=== PATIENT | male | born 1955 | race Caucasian/White ===

== ENCOUNTER 2018-11-05 11:18 | Emergency (ER) | payer MEDICARE ==
[~2018-11-05] VITALS: Ht 188 cm; Wt 122.5 kg
--- NOTE | 2018-11-05 12:02 | NUR ---
PT BIB P/V SENT FROM [facility] FOR FAST HEART RATE FOR 3 WEKKS PER PT. PT DENIES CP OR SOB.
[2018-11-05] MEDS ORDERED: ADENOSINE 6 MG/2 ML ONE ×2 (12:06→12:07)
[2018-11-05 12:17] LABS: BASOPHILS # (AUTO) 0.02 x10^3/uL (0-0.1); BASOPHILS % (AUTO) 0 % (0-1); EOSINOPHILS % (AUTO) 4 % (1-7); LYMPHOCYTES # (AUTO) 1.86 x10^3/uL (1-3.4); LYMPHOCYTES % (AUTO) 25 % (22-44); MD NO; MEAN CORPUSCULAR HEMOGLOBIN 32.8 pg (27.5-34.5); MEAN CORPUSCULAR HGB CONC 33.7 g/dL (33.2-36.2); MEAN CORPUSCULAR VOLUME 97.3 fL (81-97); MEAN PLATELET VOLUME 8.4 fL (7.4-10.4); MONOCYTES # (AUTO) 0.53 x10^3/uL (0.2-0.8); MONOCYTES % (AUTO) 7 % (2-9); NEUTROPHILS # (AUTO) 4.67 x10^3/uL (1.8-6.8); NEUTROPHILS % (AUTO) 63 % (42-75); PLATELET COUNT 216 x10^3/uL (130-400); RED BLOOD COUNT 5.08 x10^6/uL (4.38-5.82); RED CELL DISTRIBUTION WIDTH 13.8 % (9.4-14.8)
[2018-11-05 12:27] LABS: INTERNATIONAL NORMALIZED RATIO 1.05 (0.93-1.1); PROTHROMBIN TIME 11.1 Seconds (9.6-11.5)
[2018-11-05] MEDS ORDERED: ADENOSINE 6 MG/2 ML IVPush ONE ×2 (12:30)
[2018-11-05 12:34] LABS: ANION GAP 6 mmol/L (5-15); CALCIUM 9.5 mg/dL (8.5-10.1); CHLORIDE 107 mmol/L (98-107); CREATININE 1.14 mg/dL (0.7-1.3)
--- NOTE | 2018-11-05 12:37 | NUR ---
ADENOSINE ATTEMPTED X2 WITH NO SUCCESS. HR BRIEFLY WENT UP TO 170-180 FOR APPROX 15 SECONDS IMMEDIATELY AFTER ADMINISTRATION, THEN RETURNING TO 130-140. MD PRESENT TO REVIEW RHYTHM STRIP. AWAITING CARDS CONSULT.
[2018-11-05] MEDS ORDERED: SODIUM CHLORIDE 0.9% 1,000ML IVBOLUS ONE (13:00)
[2018-11-05 13:34] VITALS: BP 129/94
[2018-11-05] MEDS ORDERED: ASPI-650 PO (13:37)
[2018-11-05] MEDS ORDERED: MULT-6 PO (13:37)
[2018-11-05] MEDS ORDERED: ATOR40TA78 PO (13:37)
[2018-11-05] MEDS ORDERED: OMEG1CAP23 PO (13:37)
[2018-11-05] MEDS ORDERED: METO25TA35 PO (13:37)
[2018-11-05] MEDS ORDERED: VITAMIN D PO (13:37)
[2018-11-05] MEDS ORDERED: OMNIPAQUE 350 MG/ML, 100ML BOTTLE ONE (14:54)
== END 2018-11-05 16:09 | disposition left against medical advice (07) ==
LOC: ED 12:32
DX: I49.9 Cardiac arrhythmia, unspecified (principal)
CPT/HCPCS: 36415; 71045; 71275; 80048; 82040; 82330; 83735; 84443; 85025; 85610; 85730; 93005; 96360; 99291; J0153; J7030; Q9967

== ENCOUNTER → 2018-11-10 | Outpatient (CLI) | payer MEDICARE ==
[~2018-11-10] MED LIST: ASPI-650 PO; ATOR40TA78 PO; METO25TA35 PO; MULT-6 PO; OMEG1CAP23 PO; VITAMIN D PO
== END | disposition home or self-care (01) ==
LOC: CVU 12:20
PROVIDERS: ATTEND Nurse Practitioner Primary Care
DX: I08.2 Rheumatic disorders of both aortic and tricuspid valves (principal); E78.5 Hyperlipidemia, unspecified
CPT/HCPCS: 93306

== ENCOUNTER 2019-03-07 05:52 | Day surgery (SDC) | payer MEDICARE ==
[~2019-03-07] VITALS: Ht 188 cm; Wt 118.2 kg
[2019-03-07] MEDS ORDERED: SODIUM CHLORIDE 0.9% 1,000 ML IV SCH ×2 (06:11→06:30)
[2019-03-07] MEDS ORDERED: DILT180C2 PO (06:18)
[2019-03-07 06:20] VITALS: BP 115/84
[2019-03-07 07:10] LABS: ALBUMIN 3.9 g/dL (3.4-5.0); ANION GAP 8 mmol/L (5-15); CALCIUM 8.7 mg/dL (8.5-10.1); CHLORIDE 109 mmol/L (98-107)
[2019-03-07 07:13] LABS: ALANINE AMINOTRANSFERASE 37 U/L (12-78); ALKALINE PHOSPHATASE 65 U/L (45-117); BILIRUBIN,TOTAL 1.1 mg/dL (0.2-1.0); CREATININE 1.08 mg/dL (0.7-1.3); TOTAL PROTEIN 7.5 g/dL (6.4-8.2)
[2019-03-07] MEDS ORDERED: MIDAZOLAM 1 MG/ML, 2ML ONE (07:41)
[2019-03-07] MEDS ORDERED: FENTANYL PF 250 MCG/5ML ONE (07:41)
[2019-03-07] MEDS ORDERED: SUCCINYLCHOLINE 20 MG/ML, 10ML ONE (08:05)
[2019-03-07] MEDS ORDERED: DEXAMETHASONE 4 MG/ML, 1ML ONE (08:05)
[2019-03-07] MEDS ORDERED: PROPOFOL 10 MG/ML, 20ML ONE (08:05)
[2019-03-07] MEDS ORDERED: ROCURONIUM 10MG/ML,5ML ONE (08:05)
[2019-03-07] MEDS ORDERED: ONDANSETRON 2MG/ML, 2ML ONE (08:05)
[2019-03-07] MEDS ORDERED: LIDOCAINE 1%, 20ML ONE (08:14)
[2019-03-07] MEDS ORDERED: ACETAMINOPHEN 325 MG TABLET PO PRN (09:30)
[2019-03-07] MEDS ORDERED: DIAZEPAM 5 MG/ML, 2ML IVPush PRN (10:00)
[2019-03-07] MEDS ORDERED: FENTANYL PF 100 MCG/2ML IV PRN (10:00)
[2019-03-07] MEDS ORDERED: OXYcodone 5 MG/5 ML ORAL.SOL UDC PO PRN (10:00)
[2019-03-07] MEDS ORDERED: METOPROLOL 1 MG/ML, 5ML IV PRN (10:00)
[2019-03-07] MEDS ORDERED: EPHEDRINE 50 MG/ML, 1ML IM PRN (10:00)
[2019-03-07] MEDS ORDERED: hydrALAzine 20 MG/ML, 1ML IV PRN (10:00)
[2019-03-07] MEDS ORDERED: DIPHENHYDRAMINE 50 MG/ML, 1ML IVPush PRN (10:00)
[2019-03-07] MEDS ORDERED: ONDANSETRON ODT 8 MG PO PRN (10:00)
[2019-03-07] MEDS ORDERED: MORPHINE SULFATE 4 MG/ML, 1ML IVPush PRN (10:00)
[2019-03-07] MEDS ORDERED: EPHEDRINE 50 MG/ML, 1ML IVPush PRN (10:00)
[2019-03-07] MEDS ORDERED: MIDAZOLAM 1 MG/ML, 2ML IV PRN (10:00)
[2019-03-07] MEDS ORDERED: APIXABAN 5 MG TABLET PO STA (10:33)
[2019-03-07] MEDS ORDERED: APIXABAN 5 MG TABLET ONE (10:49)
[2019-03-07] MEDS ORDERED: APIX5TAB PO (11:36)
[2019-03-07] MEDS ORDERED: ATORVASTATIN 40 MG TABLET PO SCH (21:00)
[2019-03-08] MEDS ORDERED: DILTIAZEM HCL 180 MG PO SCH (09:00)
[2019-03-08] MEDS ORDERED: MULTIVITAMIN 1 TABLET PO SCH (09:00)
== END 2019-03-07 14:16 | disposition home or self-care (01) ==
LOC: CACL 05:52
PROVIDERS: ATTEND Internal Medicine Cardiovascular Disease
DX: I48.92 Unspecified atrial flutter (principal); I34.0 Nonrheumatic mitral (valve) insufficiency; I37.1 Nonrheumatic pulmonary valve insufficiency; I36.1 Nonrheumatic tricuspid (valve) insufficiency; Z88.1 Allergy status to other antibiotic agents; Z79.82 Long term (current) use of aspirin
CPT/HCPCS: 36415; 71046; 80053; 93312; 93321; 93325; 93613; 93621; 93653; C1730; C1731; C1732; C1894; J0330; J1100; J2250; J2405; J2704; J3010